=== PATIENT | male | born 1965 | race Caucasian/White ===

== ENCOUNTER → 2022-11-07 | Outpatient (CLI) | payer OTHER ==
--- NOTE | 2022-11-07 11:38 | XR ---
EXAMINATION TYPE: XR cervical spine comp DATE OF EXAM: 11/07/2022 11:00 AM INDICATION: Patient age:Male; 57 years old; Reason for study: S13.4XXS Sprain of ligaments of c spine; COMPARISON: None TECHNIQUE: The cervical spine was imaged in frontal, lateral, odontoid and bilateral oblique. FINDINGS: The osseous structures show normal alignment without evidence of an acute fracture. There are osteoph ytes noted throughout the cervical spine on the anterior and lateral aspects of the vertebral bodies. The intervertebral disk spaces are preserved. Pedicles are intact. Soft tissues are within normal limits. The odontoid appears intact. Scattered neural foraminal stenosis most pronounced at C5-C6 on the right. IMPRESSION: 1. No fracture or dislocation. 2. Mild degenerative disc disease changes of the cervical spine.
== END | disposition home or self-care (01) ==
LOC: RADXRMAIN 10:22
PROVIDERS: ATTEND Family Medicine
DX: S13.4XXS Sprain of ligaments of cervical spine, sequela (principal); M50.322 Other cervical disc degeneration at C5-C6 level
CPT/HCPCS: 72050